=== PATIENT | female | born 1965 | race Caucasian/White ===

== ENCOUNTER 2021-03-05 21:20 | Inpatient (IN) | payer OTHER ==
[~2021-03-05 21:20] MED LIST: ASPIR-LOW81 MG PO; BACTRIM DS TAB1 EACH PO; CYMBALTA60 MG PO; ELIQUIS5 MG PO; FISH OIL 500 M1 EAC1 PO; HYDROCODON-ACE1 EAC6 PO; INVANZ 1 GM VIAL1 GM IV; LIORESAL TAB 1010 MG PO; LIPITOR TAB 1010 MG PO; LOPRESSOR 25 MG25 MG PO; LYRICA150 MG PO; NOVOLIN N100 UNIT/1 SQ; NOVOLIN R100 UNIT/1 INJ; PERCOCET 5/325 T1 EA PO; PLAVIX 75 MG TA75 MG PO; PRINIVIL10 MG PO; VANCOMYCIN HCL1 GM IV; VANCOMYCIN1.5 GM/300 IV; VITAMIN E400 UNIT PO
== END 2021-03-05 23:54 | disposition expired | DRG 250 ==
LOC: CDU 21:20
PROVIDERS: ADMIT Internal Medicine Interventional Cardiology
PROC: 5A12012 Performance of Cardiac Output, Single, Manual (ICD-10-PCS; principal; 2021-03-05)
PROC: 02713ZZ Dilation of Coronary Artery, Two Arteries, Percutaneous Approach (ICD-10-PCS; 2021-03-05)
PROC: 3E033XZ Introduction of Vasopressor into Peripheral Vein, Percutaneous Approach (ICD-10-PCS; 2021-03-05)
PROC: B2111ZZ Fluoroscopy of Multiple Coronary Arteries using Low Osmolar Contrast (ICD-10-PCS; 2021-03-05)
PROC: B2151ZZ Fluoroscopy of Left Heart using Low Osmolar Contrast (ICD-10-PCS; 2021-03-05)
PROC: B5181ZZ Fluoroscopy of Superior Vena Cava using Low Osmolar Contrast (ICD-10-PCS; 2021-03-05)
PROC: B2181ZZ Fluoroscopy of Left Internal Mammary Bypass Graft using Low Osmolar Contrast (ICD-10-PCS; 2021-03-05)
PROC: 4A023N7 Measurement of Cardiac Sampling and Pressure, Left Heart, Percutaneous Approach (ICD-10-PCS; 2021-03-05)
DX: I21.19 ST elevation (STEMI) myocardial infarction involving other coronary artery of inferior wall (principal); E11.10 Type 2 diabetes mellitus with ketoacidosis without coma; E87.1 Hypo-osmolality and hyponatremia; R57.0 Cardiogenic shock; I25.10 Atherosclerotic heart disease of native coronary artery without angina pectoris; I73.9 Peripheral vascular disease, unspecified; I49.5 Sick sinus syndrome; E87.5 Hyperkalemia; N28.9 Disorder of kidney and ureter, unspecified; Z79.899 Other long term (current) drug therapy; Z88.0 Allergy status to penicillin; Z88.8 Allergy status to other drugs, medicaments and biological substances; Z88.2 Allergy status to sulfonamides; Z88.5 Allergy status to narcotic agent; Z91.041 Radiographic dye allergy status; Z88.6 Allergy status to analgesic agent
CPT/HCPCS: 92920; 92950; 94002; 94760; C1725; C1769; C1887; J0171; J7040